=== PATIENT | female | born 1990 | race African-American/Black ===

== ENCOUNTER 2017-01-14 18:09 | Emergency (ER) | payer BC ==
[~2017-01-14] VITALS: Ht 154.9 cm; Wt 86.2 kg
[2017-01-14 19:10] LABS: URINE BILIRUBIN NEGATIVE (Negative); URINE BLOOD 1+ (Negative); URINE COLOR YELLOW; URINE GLUCOSE-RANDOM* NEGATIVE (Negative); URINE KETONES NEGATIVE (Negative); URINE NITRITE NEGATIVE (Negative); URINE PROTEIN (DIPSTICK) TRACE (Negative); URINE SPECIFIC GRAVITY <= 1.005 (1.003-1.035)
[2017-01-14 19:16] LABS: ABSOLUTE NEUTROPHILS 5.4 thou/uL (1.4-8.2); BASOPHILS 0.5 % (0.0-2.0); EOSINOPHILS 0.6 % (0.0-3.0); HEMATOCRIT 35.9 % (37.0-47.0); HEMOGLOBIN 12.1 gm/dL (12.0-15.0); LYMPHOCYTES 20.5 % (24.0-44.0); MANUAL DIFF NO; MCH 27.9 pg (26.0-34.0); MCHC 33.6 g/dL (28.0-37.0); MCV 83.1 fL (80.0-100.0); MONOCYTES 10.5 % (1.0-8.0); PLATELET COUNT 240 thou/uL (150-400); POLYS 67.9 % (36.0-66.0); RBC 4.32 mil/uL (4.20-5.00); RDW 13.1 % (10.5-14.5); WBC 7.9 thou/uL (4.0-11.0)
[2017-01-14 19:20] LABS: SQUAMOUS >10 Many /LPF (0-3)
[2017-01-14 19:21] LABS: BACTERIA 1-9 Few /HPF (None Seen); CASTS None Seen /LPF (None Seen); CRYSTALS None Seen /LPF (None Seen); URINE RBC 0-2 Rare /HPF (0-2); URINE WBC 0-5 Rare /HPF (0-5)
[2017-01-14 19:24] LABS: CALCIUM 8.4 mg/dL (8.5-10.1); CREATININE 0.8 mg/dL (0.6-1.0)
[2017-01-14 19:28] LABS: POTASSIUM 2.9 mmol/L (3.5-5.1)
[2017-01-14] MEDS ORDERED: NORCO 5-325 TA1 EACH PO (21:14)
[2017-01-14] MEDS ORDERED: ZOFRAN ODT8 MG PO (21:14)
[2017-01-14] MEDS ORDERED: VENTOLIN HFA 1818 GM INH (21:23)
[2017-01-14 21:24] VITALS: BP 106/67
== END 2017-01-14 21:58 | disposition home or self-care (01) ==
LOC: ER 18:09
PROVIDERS: Emergency Medicine
DX: E87.6 Hypokalemia (principal); J45.909 Unspecified asthma, uncomplicated; Z88.0 Allergy status to penicillin